=== PATIENT | male | born 1965 | race Caucasian/White ===

== ENCOUNTER 2016-12-23 16:49 | Inpatient (IN) | payer MEDICARE, MEDICAID ==
[~2016-12-23] VITALS: Ht 180.3 cm; Wt 100.5 kg
[2016-12-23] MEDS ORDERED: ZOLPIDEM TARTRATE 10 MG TABLET PO PRN (17:45)
[2016-12-23] MEDS ORDERED: PNEUMOCOCCAL VACCINE POLYVALENT 0.5 ML VIAL [PPSV23] IM ONE (18:00)
[2016-12-23] MEDS: LORazepam 2 MG TABLET PO PRN (18:12)
[2016-12-23] MEDS: HALOPERIDOL 5 MG TABLET PO PRN (18:12)
[2016-12-23 18:15] VITALS: BP 158/106
[2016-12-23 21:26] VITALS: BP 140/84
[2016-12-24 06:24] VITALS: BP 142/82
[2016-12-24] MEDS ORDERED: LOPERAMIDE HCL 2 MG CAPSULE PO PRN (08:00)
[2016-12-24] MEDS ORDERED: IBUPROFEN 600 MG TABLET PO PRN (08:00)
[2016-12-24] MEDS ORDERED: ONDANSETRON HCL 4 MG TABLET PO PRN (08:00)
[2016-12-24] MEDS ORDERED: ACETAMINOPHEN 325 MG TABLET PO PRN (08:00)
[2016-12-24] MEDS ORDERED: MAG HYDROX/AL HYDROX/SIMETH ES 30 ML SUSPENSION UDCUP PO PRN (08:00)
[2016-12-24] MEDS ORDERED: ALBUTEROL SULFATE HFA 90 MCG/PUFF 8 GM INHALER IH PRN (08:00)
[2016-12-24] MEDS ORDERED: BENZOCAINE/MENTHOL LOZENGE MM PRN (08:00)
[2016-12-24] MEDS ORDERED: BACITRACIN 28.4 GM OINTMENT TP PRN (08:00)
[2016-12-24] MEDS ORDERED: PETROLATUM,WHITE 71 GM JELLY TP PRN (08:00)
[2016-12-24] MEDS ORDERED: CloNIDine HCL 0.1 MG TABLET PO PRN (08:00)
[2016-12-24] MEDS ORDERED: MAGNESIUM HYDROXIDE SUSPENSION 30 ML UDCUP PO PRN (08:00)
[2016-12-24 08:14] VITALS: BP 162/88
[2016-12-24 08:21] LABS: HEMOGLOBIN A1C 5.9 % (4.5-6.2)
[2016-12-24] MEDS ORDERED: CloZAPine 25 MG TABLET PO SCH (09:00)
[2016-12-24 09:10] LABS: ALANINE AMINOTRANSFERASE 59 U/L (12-78); ALBUMIN 4.6 g/dL (3.4-5.0); ANION GAP 10 mmol/L (8-16); ASPARTATE AMINOTRANSFERASE 33 U/L (15-37); BILIRUBIN,TOTAL 0.9 mg/dL (0.1-1.0); CALCIUM, TOTAL 9.7 mg/dL (8.8-10.5); CARBON DIOXIDE 30 mmol/L (22-29); CHLORIDE 102 mmol/L (98-107); CHOL/HDL RATIO 4.3 (4.2-7.3); CREATININE 1.05 mg/dL (0.60-1.30); GLOMERULAR FILTR. RATE CALC > 60 mL/min (>60); POTASSIUM 3.9 mmol/L (3.5-5.1); SODIUM SERUM 142 mmol/L (136-145); THYROID STIMULATING HORMONE 4.82 uIU/mL (0.36-3.74); TOTAL PROTEIN, SERUM 8.8 g/dL (6.4-8.2); UREA NITROGEN, BLOOD 15 mg/dL (7-18)
[2016-12-24 09:25] LABS: BASOPHILS % (AUTO) 0.3 % (0.0-2.0); EOSINOPHILS % (AUTO) 1.8 % (1.0-6.0); HEMATOCRIT 53.4 % (41-53); HEMOGLOBIN 17.3 g/dL (13.5-17.5); LYMPHOCYTES # (AUTO) 1.9 K/uL (1.0-4.8); LYMPHOCYTES % (AUTO) 20.8 % (22.0-44.0); MEAN CORPUSCULAR HEMOGLOBIN 27.7 pg (26.0-34.0); MEAN CORPUSCULAR HGB CONC 32.4 G/dL (31.0-37.0); MEAN CORPUSCULAR VOLUME 86 fL (80-100); MONOCYTES # (AUTO) 0.7 K/uL (0.1-1.0); MONOCYTES % (AUTO) 7.5 % (2.0-9.0); NEUTROPHILS # (AUTO) 6.3 K/uL (1.8-7.7); NEUTROPHILS % (AUTO) 69.6 % (40.0-70.0); PLATELET COUNT (AUTO) 322 K/uL (150-450); RED BLOOD CELL COUNT(AUTO) 6.23 MIL/uL (4.50-5.90); RED CELL DISTRIBUTION WIDTH 13.5 % (11.5-14.5)
[2016-12-24 16:00] VITALS: BP 140/77
[2016-12-24] MEDS: HALOPERIDOL 5 MG TABLET PO PRN (17:43)
[2016-12-24] MEDS: LORazepam 2 MG TABLET PO PRN (17:43)
[2016-12-25 05:53] VITALS: BP 161/83
[2016-12-25] MEDS: LORazepam 2 MG TABLET PO PRN ×3 (06:26→17:27)
[2016-12-25] MEDS: LEVOTHYROXINE SODIUM 25 MCG TABLET PO SCH (07:11)
[2016-12-25] MEDS: LISINOPRIL 10 MG TABLET PO SCH (08:18)
[2016-12-25 08:43] VITALS: BP 168/98
[2016-12-25] MEDS ORDERED: CloZAPine 25 MG TABLET PO SCH ×2 (09:00→21:00)
[2016-12-25] MEDS: HALOPERIDOL 5 MG TABLET PO PRN ×2 (12:45→17:27)
[2016-12-25 16:00] VITALS: BP 142/86
[2016-12-25] MEDS: TraZODone HCL 100 MG TABLET PO SCH (20:46)
[2016-12-25] MEDS: QUEtiapine FUMARATE 300 MG TABLET PO SCH (20:46)
[2016-12-26 05:40] VITALS: BP 127/67
[2016-12-26] MEDS: LEVOTHYROXINE SODIUM 25 MCG TABLET PO SCH (06:23)
[2016-12-26] MEDS: HALOPERIDOL 5 MG TABLET PO PRN ×2 (08:28→13:47)
[2016-12-26] MEDS: LORazepam 2 MG TABLET PO PRN ×3 (08:28→20:27)
[2016-12-26] MEDS: LISINOPRIL 10 MG TABLET PO SCH (08:28)
[2016-12-26 08:33] LABS: APPEARANCE,URINE CLEAR (CLEAR); GLUCOSE, URINE (UA) NEGATIVE (NEGATIVE); KETONES,URINE NEGATIVE (NEGATIVE); LEUKOCYTE ESTERASE ,URINE NEGATIVE (NEGATIVE); OCCULT BLOOD,URINE NEGATIVE (NEGATIVE); PROTEIN,URINE NEGATIVE (NEGATIVE)
[2016-12-26 08:35] LABS: ADD UA MICROSCOPIC NO
[2016-12-26] MEDS ORDERED: CloZAPine 25 MG TABLET PO SCH ×2 (09:00→21:00)
[2016-12-26 16:10] VITALS: BP 134/68
[2016-12-26] MEDS: QUEtiapine FUMARATE 300 MG TABLET PO SCH (20:27)
[2016-12-26] MEDS: TraZODone HCL 100 MG TABLET PO SCH (20:27)
[2016-12-27] MEDS: LEVOTHYROXINE SODIUM 25 MCG TABLET PO SCH (06:17)
[2016-12-27 06:36] VITALS: BP 137/75
[2016-12-27] MEDS: QUEtiapine FUMARATE 200 MG TABLET PO SCH ×2 (08:23→16:14)
[2016-12-27] MEDS: LISINOPRIL 10 MG TABLET PO SCH (08:23)
[2016-12-27 08:53] VITALS: BP 144/74
[2016-12-27] MEDS ORDERED: QUEtiapine FUMARATE 300 MG TABLET PO SCH (09:00)
[2016-12-27] MEDS ORDERED: CloZAPine 25 MG TABLET PO SCH (09:00)
[2016-12-27] MEDS: NYSTATIN 30 GM CREAM TP SCH ×2 (09:00→16:14)
[2016-12-27] MEDS: HALOPERIDOL 5 MG TABLET PO PRN (14:44)
[2016-12-27] MEDS: LORazepam 2 MG TABLET PO PRN (14:44)
[2016-12-27 16:01] VITALS: BP 146/86
[2016-12-27] MEDS: TraZODone HCL 100 MG TABLET PO SCH (20:19)
[2016-12-28 00:09] VITALS: BP 138/87
[2016-12-28] MEDS: LORazepam 2 MG TABLET PO PRN ×3 (00:10→16:10)
[2016-12-28] MEDS: HALOPERIDOL 5 MG TABLET PO PRN ×3 (00:10→16:10)
[2016-12-28] MEDS: LEVOTHYROXINE SODIUM 25 MCG TABLET PO SCH (06:16)
[2016-12-28 08:03] VITALS: BP 148/82
[2016-12-28] MEDS: QUEtiapine FUMARATE 200 MG TABLET PO SCH ×2 (08:34→16:10)
[2016-12-28] MEDS: LISINOPRIL 10 MG TABLET PO SCH (08:34)
[2016-12-28] MEDS: NYSTATIN 30 GM CREAM TP SCH ×2 (08:36→16:11)
[2016-12-28 16:00] VITALS: BP 136/70
[2016-12-28] MEDS: TraZODone HCL 100 MG TABLET PO SCH (20:07)
[2016-12-29 06:11] VITALS: BP 131/65
[2016-12-29] MEDS: LEVOTHYROXINE SODIUM 25 MCG TABLET PO SCH (06:21)
[2016-12-29] MEDS: QUEtiapine FUMARATE 200 MG TABLET PO SCH ×2 (08:07→16:05)
[2016-12-29] MEDS: LISINOPRIL 10 MG TABLET PO SCH (08:07)
[2016-12-29] MEDS: NYSTATIN 30 GM CREAM TP SCH ×2 (08:07→16:05)
[2016-12-29] MEDS: LORazepam 2 MG TABLET PO PRN ×2 (08:07→15:48)
[2016-12-29] MEDS ORDERED: CloZAPine 25 MG TABLET PO SCH (09:00)
[2016-12-29 16:07] VITALS: BP 142/66
[2016-12-29] MEDS: TraZODone HCL 100 MG TABLET PO SCH (20:28)
[2016-12-29] MEDS ORDERED: CloZAPine 100 MG TABLET PO SCH (21:00)
[2016-12-30] MEDS: LEVOTHYROXINE SODIUM 25 MCG TABLET PO SCH (06:11)
[2016-12-30 06:40] VITALS: BP 136/74
[2016-12-30] MEDS: HALOPERIDOL 5 MG TABLET PO PRN (07:24)
[2016-12-30] MEDS: LORazepam 2 MG TABLET PO PRN ×2 (07:24→16:54)
[2016-12-30] MEDS: QUEtiapine FUMARATE 200 MG TABLET PO SCH ×2 (08:10→16:54)
[2016-12-30] MEDS: LISINOPRIL 10 MG TABLET PO SCH (08:10)
[2016-12-30] MEDS: NYSTATIN 30 GM CREAM TP SCH ×2 (08:11→16:55)
[2016-12-30 08:35] VITALS: BP 130/90
[2016-12-30] MEDS ORDERED: CloZAPine 25 MG TABLET PO SCH (09:00)
[2016-12-30 16:00] VITALS: BP 141/70
[2016-12-30] MEDS: TraZODone HCL 100 MG TABLET PO SCH (20:30)
[2016-12-30] MEDS ORDERED: CloZAPine 100 MG TABLET PO SCH (21:00)
[2016-12-31 06:05] VITALS: BP 141/68
[2016-12-31] MEDS: LEVOTHYROXINE SODIUM 25 MCG TABLET PO SCH (06:16)
[2016-12-31] MEDS: LISINOPRIL 10 MG TABLET PO SCH (08:30)
[2016-12-31] MEDS: QUEtiapine FUMARATE 200 MG TABLET PO SCH (08:30)
[2016-12-31 08:38] VITALS: BP 140/77
[2016-12-31] MEDS ORDERED: QUET200T PO (08:39)
[2016-12-31] MEDS ORDERED: LEVO25TA9 PO (08:39)
[2016-12-31] MEDS ORDERED: TRAZ-147 PO (08:39)
[2016-12-31] MEDS ORDERED: LISI-661 PO (08:39)
[2016-12-31] MEDS: NYSTATIN 30 GM CREAM TP SCH (08:55)
[2016-12-31] MEDS ORDERED: CloZAPine 25 MG TABLET PO SCH (09:00)
[2016-12-31] MEDS ORDERED: CloZAPine 100 MG TABLET PO SCH (21:00)
[2017-01-01] MEDS ORDERED: CloZAPine 100 MG TABLET PO SCH (09:00)
[2017-01-03] MEDS ORDERED: CloZAPine 25 MG TABLET PO SCH (09:00)
[2017-01-03] MEDS ORDERED: CloZAPine 100 MG TABLET PO SCH (21:00)
[2017-01-04] MEDS ORDERED: CloZAPine 25 MG TABLET PO SCH (09:00)
[2017-01-04] MEDS ORDERED: CloZAPine 100 MG TABLET PO SCH (21:00)
[2017-01-05] MEDS ORDERED: CloZAPine 100 MG TABLET PO SCH ×2 (09:00→21:00)
== END 2016-12-31 11:30 | disposition home or self-care (01) | DRG 885 ==
LOC: B3A 17:45
PROVIDERS: ADMIT Psychiatry & Neurology Psychiatry; ATTEND Psychiatry & Neurology Psychiatry
DX: F20.0 Paranoid schizophrenia (principal); R45.851 Suicidal ideations; I10 Essential (primary) hypertension; E78.5 Hyperlipidemia, unspecified; K21.9 Gastro-esophageal reflux disease without esophagitis; K59.00 Constipation, unspecified; E03.9 Hypothyroidism, unspecified; G47.00 Insomnia, unspecified; B37.9 Candidiasis, unspecified; Z28.21 Immunization not carried out because of patient refusal
CPT/HCPCS: 80307; 83036; 84439; 84443; 87081